=== PATIENT | male | born 1990 | race Two or more races ===

== ENCOUNTER 2024-08-07 15:06 | Emergency (ER) | payer MEDICAID, OTHER ==
[~2024-08-07] VITALS: Ht 177.8 cm; Wt 128.0 kg
[2024-08-07] MEDS: TETRACAINE HCL 0.5% OPTH(EYE) SOLN 4ML EACHEYE ONE (16:00)
[2024-08-07] MEDS: FLUORESCEIN SOD OPTH TEST STRIP EACHEYE ONE (16:00)
[2024-08-07 16:11] VITALS: BP 134/79; TEMP 98.2
[2024-08-07] MEDS ORDERED: ERY05OO OP (16:28)
[2024-08-07 16:34] VITALS: PULSE 82; RESP 18; O2SAT 97
== END 2024-08-07 17:07 | disposition home or self-care (01) ==
LOC: ER 15:06
DX: H57.8A3 Foreign body sensation, bilateral eyes (principal); Z79.899 Other long term (current) drug therapy